=== PATIENT | female | born 1965 | race African-American/Black ===

== ENCOUNTER 2016-12-05 20:26 | Emergency (ER) | payer MEDICAID ==
[~2016-12-05] VITALS: Ht 165.1 cm; Wt 52.0 kg
[~2016-12-05 20:26] MED LIST: ARIP15TA2 PO; HYDR10SY11 PO; SERT25TA74 PO
[2016-12-05 21:55] LABS: BASOPHILS % 0.8 % (0.0-2.0); EOSINOPHILS % 0.3 % (0.0-5.0); HEMATOCRIT. 30.7 % (36.0-48.0); HEMOGLOBIN. 10.5 g/dL (12.0-16.0); LYMPHOCYTES % 43.3 % (20.0-50.0); MEAN CORPUSCULAR HEMOGLOBIN 28.8 pg (28.0-32.0); MEAN CORPUSCULAR VOLUME 84.4 fL (81.0-99.0); MEAN PLATELET VOLUME 8.4 fl (7.4-10.4); NEUTROPHILS % 50.6 % (40.0-76.0); PLATELET 226 x1000/uL (130-400); RED BLOOD CELL COUNT 3.64 mill/uL (4.2-5.4); RED CELL DISTRIBUTION WIDTH 14.4 % (11.6-14.6)
[2016-12-05 21:56] LABS: CHLORIDE 106 mEq/L (98-107)
[2016-12-05 22:04] LABS: CARBON DIOXIDE 25 mEq/L (21-32); ETHANOL BLOOD 58 mg/dL
[2016-12-05 22:05] LABS: *AMPHETAMINES SCREEN URINE NEGATIVE (NEGATIVE); *BARBITURATES SCREEN URINE NEGATIVE (NEGATIVE); *BENZODIAZEPINES SCREEN URINE NEGATIVE (NEGATIVE); *COCAINE SCREEN URINE PRESUMTIVE POSITIVE (NEGATIVE); CANNABINOID URINE SCREEN NEGATIVE (NEGATIVE); METHADONE URINE SCREEN NEGATIVE (NEGATIVE); OPIATES URINE SCREEN NEGATIVE (NEGATIVE); PHENCYCLIDINE URINE SCREEN NEGATIVE (NEGATIVE)
[2016-12-05] MEDS ORDERED: ONDANSETRON HCL 4MG/2ML VIAL IV ONE (22:15)
[2016-12-06 00:36] VITALS: BP 135/75
== END 2016-12-06 00:46 | disposition home or self-care (01) ==
LOC: ER 21:12
DX: F14.121 Cocaine abuse with intoxication with delirium (principal); F32.9 Major depressive disorder, single episode, unspecified
CPT/HCPCS: 36415; 70450; 80053; 80305; 85025; 93005; 96374; 99285; G0482; J2405; Z7610

== ENCOUNTER 2018-03-14 11:21 | Emergency (ER) | payer MEDICAID ==
[~2018-03-14] VITALS: Ht 157.5 cm; Wt 67.0 kg
[2018-03-14] MEDS ORDERED: KETOROLAC 30MG/ML VIAL IV STA (13:26)
[2018-03-14] MEDS ORDERED: SODIUM CHLORIDE 0.9% 1,000 ML IV ONE (13:26)
[2018-03-14] MEDS ORDERED: DIAZEPAM 5 MG TABLET PO ONE (13:30)
[2018-03-14 13:40] LABS: BASOPHILS % 0.8 % (0.0-2.0); EOSINOPHILS % 0.8 % (0.0-5.0); HEMATOCRIT. 35.6 % (36.0-48.0); HEMOGLOBIN. 12.1 g/dL (12.0-16.0); LYMPHOCYTES % 39.1 % (20.0-50.0); MEAN CORPUSCULAR HEMOGLOBIN 29.6 pg (28.0-32.0); MEAN CORPUSCULAR VOLUME 87.1 fL (81.0-99.0); MEAN PLATELET VOLUME 8.5 fl (7.4-10.4); MONOCYTES % 5.9 % (2.0-8.0); NEUTROPHILS % 53.4 % (40.0-76.0); PLATELET 268 x1000/uL (130-400); RED BLOOD CELL COUNT 4.09 mill/uL (4.2-5.4); RED CELL DISTRIBUTION WIDTH 14.4 % (11.6-14.6)
[2018-03-14 13:43] LABS: CHLORIDE 101 mEq/L (98-107)
[2018-03-14 13:44] LABS: PROTHROMBIN TIME 9.9 sec (9.1-11.1)
[2018-03-14 15:26] VITALS: BP 122/86
== END 2018-03-14 16:04 | disposition home or self-care (01) ==
LOC: ER 11:21
DX: S39.012A Strain of muscle, fascia and tendon of lower back, initial encounter (principal); I11.9 Hypertensive heart disease without heart failure; R56.9 Unspecified convulsions; D57.1 Sickle-cell disease without crisis; X58.XXXA Exposure to other specified factors, initial encounter; Y93.89 Activity, other specified; Y92.89 Other specified places as the place of occurrence of the external cause
CPT/HCPCS: 36415; 71045; 80053; 83880; 84484; 85025; 85610; 93005; 96361; 96374; 99284; J1885; J7030

== ENCOUNTER 2018-05-03 05:03 | Emergency (ER) | payer MEDICAID ==
[~2018-05-03] VITALS: Ht 167.6 cm; Wt 59.0 kg
[2018-05-03] MEDS ORDERED: ONDANSETRON HCL 4MG/2ML INJ IV STA (07:36)
[2018-05-03] MEDS ORDERED: SODIUM CHLORIDE 0.9% 1,000 ML IV ONE (07:36)
[2018-05-03] MEDS ORDERED: MORPHINE SULFATE 4 MG/ML CPJ (NOT FOR IM USE) IV STA (07:36)
[2018-05-03 08:39] LABS: BASOPHILS % 0.6 % (0.0-2.0); EOSINOPHILS % 0.4 % (0.0-5.0); HEMATOCRIT. 35.4 % (36.0-48.0); LYMPHOCYTES % 28.8 % (20.0-50.0); MEAN CORPUSCULAR HEMOGLOBIN 29.6 pg (28.0-32.0); MEAN CORPUSCULAR VOLUME 87.2 fL (81.0-99.0); MEAN PLATELET VOLUME 8.4 fl (7.4-10.4); MONOCYTES % 4.9 % (2.0-8.0); NEUTROPHILS % 65.3 % (40.0-76.0); PLATELET 263 x1000/uL (130-400); RED BLOOD CELL COUNT 4.06 mill/uL (4.2-5.4); RED CELL DISTRIBUTION WIDTH 14.4 % (11.6-14.6)
[2018-05-03 08:43] LABS: CHLORIDE 102 mEq/L (98-107)
[2018-05-03] MEDS ORDERED: KETOROLAC 30MG/ML VIAL IV ONE (09:45)
[2018-05-03 10:31] LABS: CLARITY URINE CLEAR (CLEAR); COLOR URINE YELLOW (YELLOW); KETONES URINE TRACE (NEGATIVE); LEUKOCYTE ESTERASE URINE NEGATIVE (NEGATIVE); NITRITE URINE NEGATIVE (NEGATIVE); OCCULT BLOOD URINE NEGATIVE (NEGATIVE); PROTEIN URINE NEGATIVE (NEGATIVE); SPECIFIC GRAVITY URINE 1.012 (1.005-1.030); UROBILINOGEN URINE 0.2 E.U./dL (0.2-1.0)
[2018-05-03 11:20] VITALS: BP 116/73
== END 2018-05-03 11:38 | disposition home or self-care (01) ==
LOC: ER 05:03
DX: R10.9 Unspecified abdominal pain (principal); M79.10 Myalgia, unspecified site; I10 Essential (primary) hypertension; D57.1 Sickle-cell disease without crisis; M54.9 Dorsalgia, unspecified
CPT/HCPCS: 36415; 71045; 74176; 80053; 81003; 83690; 85025; 85044; 93005; 96374; 96375; 99284; J1885; J2270; J2405; J7030; Z7610

== ENCOUNTER 2019-02-02 09:00 | Emergency (ER) | payer MEDICAID ==
[~2019-02-02] VITALS: Ht 160 cm; Wt 52.0 kg
[2019-02-02] MEDS ORDERED: SODIUM CHLORIDE 0.9% 1,000 ML IV ONE (09:53)
[2019-02-02] MEDS ORDERED: KETOROLAC 30MG/ML VIAL IV STA (09:53)
[2019-02-02 10:15] LABS: BASOPHILS % 0.8 % (0.0-2.0); EOSINOPHILS % 0.3 % (0.0-5.0); HEMATOCRIT. 31.3 % (36.0-48.0); HEMOGLOBIN. 10.8 g/dL (12.0-16.0); LYMPHOCYTES % 37.9 % (20.0-50.0); MEAN CORPUSCULAR HEMOGLOBIN 29.7 pg (28.0-32.0); MEAN PLATELET VOLUME 7.4 fl (7.4-10.4); MONOCYTES % 5.8 % (2.0-8.0); NEUTROPHILS % 55.2 % (40.0-76.0); PLATELET 239 x1000/uL (130-400); RED BLOOD CELL COUNT 3.64 mill/uL (4.2-5.4); RED CELL DISTRIBUTION WIDTH 14.7 % (11.6-14.6)
[2019-02-02 10:17] LABS: CHLORIDE 104 mEq/L (98-107)
[2019-02-02 10:31] LABS: CLARITY URINE CLEAR (CLEAR); COLOR URINE YELLOW (YELLOW); KETONES URINE NEGATIVE (NEGATIVE); LEUKOCYTE ESTERASE URINE NEGATIVE (NEGATIVE); NITRITE URINE NEGATIVE (NEGATIVE); OCCULT BLOOD URINE NEGATIVE (NEGATIVE); PROTEIN URINE NEGATIVE (NEGATIVE); SPECIFIC GRAVITY URINE 1.007 (1.005-1.030); UROBILINOGEN URINE 0.2 E.U./dL (0.2-1.0)
[2019-02-02 13:07] VITALS: BP 129/69
== END 2019-02-02 13:07 | disposition home or self-care (01) ==
LOC: ER 09:00
DX: R10.9 Unspecified abdominal pain (principal); R30.0 Dysuria; I11.9 Hypertensive heart disease without heart failure; Z79.899 Other long term (current) drug therapy; Z86.2 Personal history of diseases of the blood and blood-forming organs and certain disorders involving the immune mechanism
CPT/HCPCS: 36415; 74176; 80053; 81003; 83690; 85025; 96374; 99284; J1885; J7030

== ENCOUNTER 2019-10-20 23:08 | Emergency (ER) | payer MEDICAID ==
[~2019-10-20] VITALS: Ht 165.1 cm; Wt 60.0 kg
[2019-10-21] MEDS ORDERED: SODIUM CHLORIDE 0.9% 1,000 ML IV ONE (03:25)
[2019-10-21] MEDS ORDERED: ONDANSETRON HCL 4MG/2ML INJ IV STA (03:25)
[2019-10-21] MEDS ORDERED: MORPHINE SULFATE 4 MG/ML CPJ (NOT FOR IM USE) IV STA (03:25)
[2019-10-21 03:58] LABS: BASOPHILS % 0.8 % (0.0-2.0); EOSINOPHILS % 1.5 % (0.0-5.0); HEMOGLOBIN. 10.8 g/dL (12.0-16.0); LYMPHOCYTES % 64.2 % (20.0-50.0); MEAN CORPUSCULAR HEMOGLOBIN 29.6 pg (28.0-32.0); MEAN CORPUSCULAR VOLUME 85.4 fL (81.0-99.0); MEAN PLATELET VOLUME 7.9 fl (7.4-10.4); MONOCYTES % 6.1 % (2.0-8.0); NEUTROPHILS % 27.4 % (40.0-76.0); PLATELET 256 x1000/uL (130-400); RED BLOOD CELL COUNT 3.63 mill/uL (4.2-5.4); RED CELL DISTRIBUTION WIDTH 14.6 % (11.6-14.6)
[2019-10-21 03:59] LABS: CHLORIDE 109 mEq/L (98-107)
[2019-10-21 05:30] VITALS: BP 125/80
== END 2019-10-21 06:30 | disposition home or self-care (01) ==
LOC: ER 23:08
DX: D57.00 Hb-SS disease with crisis, unspecified (principal); M79.18 Myalgia, other site; T14.8XXA Other injury of unspecified body region, initial encounter; X58.XXXA Exposure to other specified factors, initial encounter; Y93.89 Activity, other specified; Y92.89 Other specified places as the place of occurrence of the external cause; Y99.8 Other external cause status; Z79.899 Other long term (current) drug therapy
CPT/HCPCS: 36415; 72100; 80053; 85025; 85044; 93005; 96374; 96375; 99285; J2270; J2405; J7030

== ENCOUNTER 2020-01-17 11:15 | Emergency (ER) | payer MEDICAID ==
[~2020-01-17] VITALS: Ht 165.1 cm; Wt 55.0 kg
[2020-01-17] MEDS ORDERED: KETOROLAC 60MG/2ML VIAL IM STA (11:53)
[2020-01-17 12:12] VITALS: BP 118/74
[2020-01-17 12:27] LABS: CLARITY URINE CLEAR (CLEAR); COLOR URINE YELLOW (YELLOW); KETONES URINE NEGATIVE (NEGATIVE); LEUKOCYTE ESTERASE URINE NEGATIVE (NEGATIVE); NITRITE URINE NEGATIVE (NEGATIVE); OCCULT BLOOD URINE NEGATIVE (NEGATIVE); PH URINE 5.5 (4.5-8.0); PROTEIN URINE NEGATIVE (NEGATIVE); SPECIFIC GRAVITY URINE 1.016 (1.005-1.030); UROBILINOGEN URINE 0.2 E.U./dL (0.2-1.0)
== END 2020-01-17 13:01 | disposition home or self-care (01) ==
LOC: ER 11:15
DX: M54.5 Low back pain (principal); D57.1 Sickle-cell disease without crisis
CPT/HCPCS: 81003; 96372; 99283; J1885

== ENCOUNTER 2020-08-21 06:57 | Emergency (ER) | payer MEDICAID ==
[~2020-08-21] VITALS: Ht 165.1 cm; Wt 53.0 kg
[2020-08-21] MEDS ORDERED: FAMOTIDINE 20MG/2ML VIAL IV ONE (07:15)
[2020-08-21] MEDS ORDERED: EPINEPHRINE 1:1000 1 MG/ML AMP IM ONE (07:15)
[2020-08-21] MEDS ORDERED: DEXAMETHASONE 10 MG/ML VIAL IV ONE (07:15)
[2020-08-21] MEDS ORDERED: SODIUM CHLORIDE 0.9% 1,000 ML IV ONE (07:15)
[2020-08-21] MEDS ORDERED: DIPHENHYDRAMINE 25MG CAPSULE PO ONE (07:15)
[2020-08-21 07:43] LABS: BASOPHILS % 0.6 % (0.0-2.0); EOSINOPHILS % 0.1 % (0.0-5.0); HEMATOCRIT. 34.4 % (36.0-48.0); HEMOGLOBIN. 11.8 g/dL (12.0-16.0); LYMPHOCYTES % 18.7 % (20.0-50.0); MEAN CORPUSCULAR VOLUME 84.6 fL (81.0-99.0); MEAN PLATELET VOLUME 8.5 fl (7.4-10.4); MONOCYTES % 3.6 % (2.0-8.0); PLATELET 279 x1000/uL (130-400); RED BLOOD CELL COUNT 4.07 mill/uL (4.2-5.4); RED CELL DISTRIBUTION WIDTH 14.7 % (11.6-14.6)
[2020-08-21 07:44] LABS: CHLORIDE 106 mEq/L (98-107)
[2020-08-21 11:00] VITALS: BP 111/55
[2020-08-21] MEDS ORDERED: EPIN0.3A3 IM (11:12)
== END 2020-08-21 11:18 | disposition home or self-care (01) ==
LOC: ER 06:57
DX: T78.2XXA Anaphylactic shock, unspecified, initial encounter (principal); D64.9 Anemia, unspecified
CPT/HCPCS: 36415; 80053; 85025; 93005; 96361; 96372; 96374; 96375; 99284; J1100; J3490; J7030; Q0163; Z7610

== ENCOUNTER 2021-10-06 12:16 | Emergency (ER) | payer MEDICAID, OTHER ==
[~2021-10-06] VITALS: Ht 165.1 cm; Wt 55.0 kg
[~2021-10-06 12:16] MED LIST changes: +EPIN0.3A3 IM
[2021-10-06] MEDS ORDERED: ONDANSETRON HCL 4MG/2ML INJ IV STA ×2 (13:55→18:25)
[2021-10-06] MEDS ORDERED: MORPHINE SULFATE 4 MG/ML CPJ (NOT FOR IM USE) IV STA ×2 (13:55→18:25)
[2021-10-06] MEDS ORDERED: SODIUM CHLORIDE 0.9% 1,000 ML IV ONE (14:00)
[2021-10-06 14:16] LABS: BASOPHILS % 0.6 % (0.0-2.0); EOSINOPHILS % 0.4 % (0.0-5.0); HEMATOCRIT. 34.4 % (36.0-48.0); HEMOGLOBIN. 11.6 g/dL (12.0-16.0); LYMPHOCYTES % 42.6 % (20.0-50.0); MEAN CORPUSCULAR HEMOGLOBIN 28.4 pg (28.0-32.0); MEAN CORPUSCULAR VOLUME 84.3 fL (81.0-99.0); MEAN PLATELET VOLUME 8.5 fl (7.4-10.4); MONOCYTES % 6.1 % (2.0-8.0); NEUTROPHILS % 50.3 % (40.0-76.0); PLATELET 275 x1000/uL (130-400); RED BLOOD CELL COUNT 4.08 mill/uL (4.2-5.4); RED CELL DISTRIBUTION WIDTH 14.2 % (11.6-14.6)
[2021-10-06 14:23] LABS: CHLORIDE 104 mEq/L (98-107)
[2021-10-06 14:25] LABS: CLARITY URINE CLEAR (CLEAR); COLOR URINE YELLOW (YELLOW); KETONES URINE NEGATIVE (NEGATIVE); LEUKOCYTE ESTERASE URINE 1+ (NEGATIVE); NITRITE URINE NEGATIVE (NEGATIVE); OCCULT BLOOD URINE NEGATIVE (NEGATIVE); PROTEIN URINE NEGATIVE (NEGATIVE); SPECIFIC GRAVITY URINE 1.014 (1.005-1.030)
[2021-10-06 14:27] LABS: PROTHROMBIN TIME 10.6 sec (9.6-11.0)
[2021-10-06] MEDS ORDERED: FAMOTIDINE 20MG/2ML VIAL IV STA (18:25)
[2021-10-06 19:30] VITALS: BP 114/56
== END 2021-10-06 19:40 | disposition short-term general hospital (02) ==
LOC: ER 12:16 → CANRESERV 17:25 → ENRESERV 17:25 → CANRESERV 17:29 → ER 19:40 → CANBEDREQ 20:52
DX: R10.9 Unspecified abdominal pain (principal); K62.5 Hemorrhage of anus and rectum; D64.9 Anemia, unspecified; D57.1 Sickle-cell disease without crisis; Z20.822 Contact with and (suspected) exposure to COVID-19; Z98.890 Other specified postprocedural states
CPT/HCPCS: 36415; 74176; 80053; 81003; 83690; 85025; 85610; 86850; 86900; 86901; 87426; 93005; 96361; 96374; 96375; 96376; 99285; J2270; J2405; J7030